=== PATIENT | female | born 1985 | race Caucasian/White ===

== ENCOUNTER → 2019-02-10 10:30 | Outpatient (CLI) | payer OTHER, SELFPAY ==
[2019-02-10 11:14] LABS: Appearance Urine UA CLEAR; Bilirubin Urine UA NEGATIVE (NEGATIVE); Color Urine UA YELLOW; Glucose Urine UA NEGATIVE (Negative); Ketones Urine UA NEGATIVE (NEGATIVE); Leukocyte Esterase Urine UA 2+ (NEGATIVE); Nitrite Urine UA NEGATIVE (Negative); Occult Blood Urine UA TRACE-LYSED (Negative); Protein Urine UA NEGATIVE (Negative); Urobilinogen Urine UA 0.2 E.U./dL (0.2)
[2019-02-10 11:21] LABS: Add Manual Diff / Slide Review NO; Basophils Absolute Auto 0 /uL (0-100); Basophils Percent Auto 0.4 % (0-2); Eosinophils Absolute Auto 0 /uL (0-450); Eosinophils Percent Auto 0.6 % (2-4); Hematocrit 39.5 % (36-46); Hemoglobin 13.7 g/dL (12.0-16.0); Lymphocytes Absolute Auto 1100 /uL (1100-4500); Lymphocytes Percent Auto 14.6 % (25-40); Mean Corpuscular HGB Conc 34.6 % (30-36); Mean Corpuscular Hemoglobin 29.7 PG (26-34); Mean Corpuscular Volume 85.9 fL (80-100); Monocytes Absolute Auto 500 /uL (0-900); Neutrophils Absolute Auto 5800 /uL (1500-7000); Neutrophils Percent Auto 77.4 % (50-75); Platelet Count 254 X10^3/uL (150-400); Red Cell Distribution Width 14.7 % (11.6-14.8); White Blood Cell Count 7.5 X10^3/uL (4.5-11.0)
[2019-02-10 11:31] LABS: Amorphous Sediment Urine 1+; Bacteria Urine Many (>30); RBC Urine 1-5/HPF (0-5/HPF); Squamous Epithelial Cell Urine 5-10 /HPF (0-5/HPF); WBC Urine 5-10/HPF (0-5/HPF)
[2019-02-10 16:15] LABS: Hepatitis B Surface Antigen NEGATIVE s/c (NEGATIVE); Rubella Antibody IgG 42.8 IU/mL (>15)
[2019-02-10 16:22] LABS: HIV 1 & 2 Ab/Ag 4th Gen Combo NEGATIVE (NEGATIVE); Hep C Virus Ab w/Reflex Quant NEGATIVE s/c (NEGATIVE)
[2019-02-12 19:51] LABS: RPR Screen Nonreactive (Nonreactive)
== END ==
PROVIDERS: PCP Family Medicine; Visit Provider Family Medicine
DX: Z34.81 Encounter for supervision of other normal pregnancy, first trimester (principal)
CPT/HCPCS: 36415; 80055; 81003; 81015; 86787; 86803; 86850; 86900; 86901; 87086; 87389

== ENCOUNTER → 2019-05-09 13:06 | Outpatient (CLI) | payer OTHER, SELFPAY ==
--- NOTE | 2019-05-09 13:08 | DI.US.S_ITS ---
PROCEDURE: US OB >= 14 WEEKS FETUS INDICATIONS: ANATOMY SCAN OUTSIDE/PRIOR DATING DATA: Last menstrual period (LMP): 12/22/18. LMP-based estimated date of delivery (SAMY): 09/28/19. First dating scan (date and location): 05/09/19. Estimated date of delivery (SAMY) from first dating scan: 09/24/19. TECHNIQUE: Real-time scanning was performed of the fetus, with image documentation and biometric measurements. Endovaginal scanning: N./A. COMPARISON: None. FINDINGS: General: A single living intrauterine gestation is present. Presentation: Vertex Placenta: Placental position is posterior, without previa. Amniotic fluid index: 15.9 cm, normal range is 5-24 cm. heart rate: 143 beats per minute. Maternal cervical canal: 4.3 cm long. Normal lower limit is 2.5 cm. biometrics: Biparietal diameter: 20 weeks 4 days Head circumference: 19 weeks 6 days Abdominal circumference: 20 weeks Femur length: 20 weeks 4 days Estimated gestational age from initial scan: 19 weeks 5 days Composite gestational age from present scan: 20 weeks 2 days Estimated weight and percentile: 340 g; 75th percentile Measurement variability for biometric dating: +/- 7 days from 14 weeks to 15 weeks 6 days gestation, +/- 10 days from 16 weeks to 21 weeks 6 days gestation, +/- 2 weeks from 22 weeks to 27 weeks 6 days gestation, +/- 3 weeks for 28 weeks gestation or later. weight reference: 4500 g or EFW >90/95% is considered macrosomia or large for gestational age. EFW <10% is small for gestational age. EFW 5% or less is considered intra-uterine growth restriction. Anatomic survey: Neuro: Ventricles are non-dilated at less than 10 mm. Cisterna magna is normal at 3-11 mm. Cerebellum is normal in size and morphology. Nuchal skin fold: Normal at less than 6 mm between 14-21 weeks gestational age. Face: Nose and lips, facial profile are normal. Spine: No evidence for spina bifida. Heart: 4-chambered heart is present, with normal ventricular outflow tracts. Diaphragm: Diaphragm is intact. Stomach: Left-sided stomach is present. Kidneys: No hydronephrosis. Normal is less than 5 mm in 2nd trimester, less than 7 mm in 3rd trimester. Cord: 3-vessel cord has orthotopic insertion. Bladder: Normal in size. Extremities: All 4 extremities identified. IMPRESSION: 1. Single living IUP with composite age of 20 weeks 2 days corresponding to ultrasound SAMY of 09/24/19. 2. Normal anatomic survey. Dictated by: Jamey Talavera [facility] Interpreted: Arianna Arambula MD on 05/09/2019 at 16:57 Approved by: Arianna Arambula M.D. on 05/09/2019 at 17:14
== END ==
PROVIDERS: PCP Family Medicine; Referring Provider Family Medicine; Visit Provider Family Medicine
DX: Z34.92 Encounter for supervision of normal pregnancy, unspecified, second trimester (principal); Z3A.20 20 weeks gestation of pregnancy
CPT/HCPCS: 76811

== ENCOUNTER 2019-07-06 10:14 | Outpatient (CLI) | payer OTHER, SELFPAY ==
--- NOTE | 2019-07-06 10:52 | PM.OBTRLD ---
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 Most likely maternal HR heard in clinic. Return to normal appts. OB Disposition: home
== END 2019-07-06 10:50 | disposition home or self-care (01) ==
LOC: LABOR 10:29 → OB 13:25
PROVIDERS: PCP Family Medicine; Referring Provider Family Medicine; Visit Provider Family Medicine
DX: O36.8330 Maternal care for abnormalities of the fetal heart rate or rhythm, third trimester, not applicable or unspecified (principal); Z3A.28 28 weeks gestation of pregnancy
CPT/HCPCS: 36415; 59025; 82950; 85014; 85018; G0378; G0379

== ENCOUNTER → 2019-07-06 10:55 | Outpatient (CLI) | payer OTHER, SELFPAY ==
[2019-07-06 13:07] LABS: Hemoglobin 11.5 g/dL (12.0-16.0)
[2019-07-06 13:19] LABS: GTT (PREG) 1 Hour PP 50gm Dose 142 mg/dL (76-139)
== END ==
PROVIDERS: PCP Family Medicine; Referring Provider Family Medicine; Visit Provider Family Medicine
DX: Z3A.26 26 weeks gestation of pregnancy (principal)
CPT/HCPCS: 36415; 82950; 85014; 85018

== ENCOUNTER → 2019-07-12 08:33 | Outpatient (CLI) | payer OTHER, SELFPAY ==
[2019-07-12 09:13] LABS: Glucose Fasting Gestational 87 mg/dL (76-95)
[2019-07-12 10:37] LABS: Glucose 1 Hour Gest 146 mg/dL (76-180)
[2019-07-12 11:41] LABS: Glucose 2 Hour Gest 108 mg/dL (76-155)
[2019-07-12 11:54] LABS: Glucose Tol Interp,Gestational INTERPRETATION
[2019-07-12 13:40] LABS: Glucose 3 Hour Gest 62 mg/dL (76-140)
== END ==
PROVIDERS: PCP Family Medicine; Referring Provider Family Medicine; Visit Provider Family Medicine
DX: R73.09 Other abnormal glucose (principal)
CPT/HCPCS: 36415; 82951; 82952

== ENCOUNTER → 2019-08-29 15:54 | Outpatient (CLI) | payer OTHER, SELFPAY ==
[2019-08-30 15:06] LABS: Strep Grp B PCR NEG for Grp B Strep
== END ==
PROVIDERS: PCP Family Medicine; Visit Provider Family Medicine
DX: Z34.90 Encounter for supervision of normal pregnancy, unspecified, unspecified trimester (principal); Z3A.36 36 weeks gestation of pregnancy
CPT/HCPCS: 87653

== ENCOUNTER 2019-09-29 19:49 | Inpatient (IN) | payer OTHER, SELFPAY ==
[2019-09-29] MEDS: LACTATED RINGERS 1,000 ML 100 ML IV ×2 (20:40→21:25)
--- NOTE | 2019-09-29 20:57 | P.HPOB_ITS ---
OB HPI Date/Time Date of admission: 09/29/19 Date Patient Seen: 09/30/19 Time Patient Seen: 01:23 History of Present Condition Chief complaint: eval of labor : 3 Para: 2 Estimated Date of Delivery: 09/28/19 Estimated Gestational Age (weeks): 40w1d Narrative: Miley Avitia is a 34 year old at 40w1d who presented with regular painful contractions. Pt reports contractions starting around 5pm, increasing in frequency and intensity since then. No LOF. Minimal vaginal bleeding. Feeling baby move regularly. History of Present care: good care, initiated at week # (7) and pounds weight gain (39) Dating criteria: based on 1st trimester US only Ultrasounds: normal 1st trimester US and normal mid trimester US Obstetrical complications: none Medical complications: none Preadmission Labs Blood type: A (+) positive -: Antibody screen: negative, GBS status: negative, HBsAG: negative, HIV: negative and RPR/VDLR: negative -: Rubella: immune and Varicella: immune HCT: 33 HCAB: negative 1 hr GTT: 142 3 hr GTT: 1 hr (146), 2 hr (108) and 3 hr (62) Fasting blood glucose: 87 Prior (ies) History: 06/2013 - at 39w4d, IOL, 7lb2oz female, 3rd degree laceration 10/2016 - at 40w5d, 8lb3oz male Evaluation Evaluation Baseline heart rate: 130 Variability: Moderate (11-25) monitor accelerations: Present monitor decelerations: Absent Contraction Frequency (minutes): 3 Uterine Contraction Intensity: Strong/Firm Category of Tracing: I Cervical dilation (cm): 10 Cervical effacement (%): 100 station: +1 Comments: AROM performed after informed consent with production of clear fluid. [facility] Medical History (Updated 09/18/19 @ 11:58 by Deana Green MD) Chicken pox (Resolved ~1989) Surgical History Anesthesia (Resolved) History of adenoidectomy (Resolved ~1993) Family History Father Heart disease Hypertension Mother Type 1 diabetes Hyperlipidemia Brother Hypertension Hyperlipidemia Mental health problem Grandfather Heart disease Stroke Grandmother Cancer Mental health problem Grandfather No problems noted. 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[employer]) current occupational exposures/hazards: No special ese needs: No leisure activities: exercise Smoking Status: Never smoker Meds Home Medications and Allergies Home Medications Medication Instructions Recorded Confirmed Type prenat.vits,david,aob-igfi-ddvki 1 tab PO DAILY 01/31/19 09/29/19 History Allergies Allergy/AdvReac Type Severity Reaction Status Date / Time From ZITHROMAX Allergy Mild Uncoded 09/26/19 15:24 PENICILLIN Allergy Mild Uncoded 09/26/19 15:24 Amoxicillin Allergy Unknown RASH,HEADAC Uncoded 09/26/19 15:24 HE Clavulanic Acid Allergy Unknown RASH,HEADAC Uncoded 09/26/19 15:24 HE Exam Narrative Exam Narrative: Gen: NAD, sitting comfortably in bed, appears well CV; RRR, no murmurs Resp: clear to auscultation bilaterally Abd: soft, nontender, gravid, nondistended Ext: trace edema Objective Labs Result Diagrams: 09/29/19 20:35 Assessment and Plan Assessment and Plan Assessment and Plan narrative: 34yo at 40w1d who presented in active labor. No complications with . AROM performed with production of clear fluid. GBS negative, Rh positive. - Expectant management, anticipate - Epidural for pain control - FHT reassuring - GBS negative, no prophylaxis
[2019-09-29 21:07] LABS: Add Manual Diff / Slide Review NO; Basophils Absolute Auto 0 /uL (0-100); Basophils Percent Auto 0.4 % (0-2); Eosinophils Absolute Auto 0 /uL (0-450); Eosinophils Percent Auto 0.1 % (2-4); Hematocrit 38.6 % (36-46); Hemoglobin 13.3 g/dL (12.0-16.0); Lymphocytes Absolute Auto 1000 /uL (1100-4500); Lymphocytes Percent Auto 8.1 % (25-40); Mean Corpuscular HGB Conc 34.4 % (30-36); Mean Corpuscular Hemoglobin 30.4 PG (26-34); Mean Corpuscular Volume 88.6 fL (80-100); Monocytes Absolute Auto 600 /uL (0-900); Monocytes Percent Auto 4.9 % (3-14); Neutrophils Absolute Auto 10400 /uL (1500-7000); Neutrophils Percent Auto 86.5 % (50-75); Platelet Count 172 X10^3/uL (150-400); Red Blood Cell Count 4.36 X10^6/uL (4.0-5.2); Red Cell Distribution Width 14.2 % (11.6-14.8); White Blood Cell Count 12.1 X10^3/uL (4.5-11.0)
[2019-09-29 21:59] LABS: COVID19 -Nasal RAPID Negative (Negative)
[2019-09-29 23:52] VITALS: BP 126/71
[2019-09-30] MEDS: OXYTOCIN 10 UNIT/ML VIAL 20 UNIT (02:35)
--- NOTE | 2019-09-30 03:04 | PM.OBPRVD ---
Labor & Delivery Delivery date: 09/30/19 Intrapartal events: None Cervical ripening method: none Induction method: none Delivery augmentation: rupture of membranes Delivery monitor: external FHT Route of delivery: Episiotomy description: None L&D Laceration Description: Perineal - 2nd Degree Estimated blood loss (mL): 200 Anesthesia type: Epidural Complications: None Narrative: PROCEDURE: at 40w1d presented in active labor and was admitted to Labor and Delivery. The patient progressed through the 1st stage over 11.5 hours. Pain was controlled with an epidural. AROM was performed when the pt was fully dilated with production of clear fluid. The patient progressed through the 2nd stage over 1 hour and delivered a viable female with APGARs 8/9 at 2:32am via without complications. The cord was clamped and cut after it stopped pulsating, and baby remained on maternal abdomen. The perineum and vagina were inspected with 2nd degree laceration repaired with 3-O Chromic. PREPROCEDURE DIAGNOSIS: Intrauterine at 40w1d GBS negative RH positive POSTPROCEDURE DIAGNOSIS: Intrauterine at 40w2d, delivered Same as preprocedure ROM APPEARANCE: Clear BABY A DELIVERY TIME: 2:32 BABY A WEIGHT: 8lb0.6oz BABY A NUCHAL CORD: None BABY A CORD GASES OBTAINED: No PLACENTA DELIVERY TIME: 2:37 PLACENTA APPEARANCE: Intact [place] Baby 1: Infant gender: Female Presentation: vertex position: Right Occiput Anterior Placenta delivery description: Spontaneous cord vessel description: 3 Vessels score (1 min): 8 score (5 min): 9 Plan for aftercare: Normal care
[2019-09-30] MEDS: LANOLIN OINT 7 GM 1 APPLIC TOP (06:11)
[2019-09-30] MEDS: DERMOPLAST SPRAY 20% 60 ML 1 SPRAY TOP (06:11)
[2019-09-30] MEDS: PRENATAL VIT,CALC/IRON/FOLIC 1 TABLET 1 TAB PO (09:02)
[2019-09-30] MEDS: IBUPROFEN 600 MG TABLET PO ×3 (09:03→22:37)
[2019-09-30] MEDS: DOCUSATE 100 MG CAPSULE PO (09:03)
[2019-09-30] MEDS: FERROUS GLUCONATE 324 MG TABLET PO (09:04)
--- NOTE | 2019-09-30 11:28 | P.PNOB_ITS ---
Subjective - OB Subjective Patient comments: no complaints and pain well controlled [place] baby status: doing well and nursing well feeding status: exclusively breast feeding Date Patient Seen: 09/30/19 Time Patient Seen: 11:29 Interval history: Patient is a 34-year-old 3 para 3 day number 0-1 status post spontaneous vaginal delivery with a first-degree laceration. She reports that pain is well controlled with ibuprofen. Bleeding is tapering. is going well. Exam Vital Signs (past 8 hours): Generally: Patient is sitting up in bed, nursing , no acute distress Fundus: Firm at U Extremities: Negative Homans, no edema Perineum: Well approximated Objective Labs Result Diagrams: 09/29/19 20:35 Labs: Laboratory Results - last 24 hr 09/29/19 09/29/19 09/29/19 20:35 20:35 21:04 WBC 12.1 H RBC 4.36 Hgb 13.3 Hct 38.6 MCV 88.6 MCH 30.4 MCHC 34.4 RDW 14.2 Plt Count 172 Neut % (Auto) 86.5 H Lymph % (Auto) 8.1 L [place] % (Auto) 4.9 Eos % (Auto) 0.1 L Baso % (Auto) 0.4 Neut # (Auto) 70254 H Lymph # (Auto) 1000 L [place] # (Auto) 600 Eos # (Auto) 0 Baso # (Auto) 0 COVID-19 PCR Negative Blood Type A Positive Antibody Screen Negative Assessment & Plan Assessment and Plan (1) Spontaneous vaginal delivery: Problem details: Assessment: 34-year-old 3 para 3 day number 0-1 status post spontaneous vaginal delivery doing very well Plan: Discharge to home Follow-up in 6 weeks Status: Acute Time Spent With Patient Time: Total time spent is greater than 50% in coordination of care (as documented) at patient's floor/unit and/or counseling patient: Time with patient: 15-24 minutes
--- NOTE | 2019-09-30 11:39 | PM.OBDS.1 ---
Discharge Providers Provider Date of admission: 09/29/19 19:49 Discharge Date: 09/30/19 Primary care physician: Deana Green MD Consults: 10/01/19 03:01 Consult to Supervisor [employer] Routine Comment: Discharge provider: Alessandra Galvan MD Summary Hospital Course Date Patient Seen: 09/30/19 Time Patient Seen: 11:40 Procedures: Artificial rupture of membranes Epidural analgesia Spontaneous vaginal delivery Hospital Course: Patient is a 34-year-old 3 para 3 who presented in active labor. She underwent an artificial rupture of membranes. She received an epidural for pain management. She had a spontaneous vaginal delivery with first-degree laceration. Peripartum Data Infant Delivery Method: Natural Vaginal Laceration description: Perineal - 1st Degree Episiotomy description: None Procedures: Artificial rupture of membranes Epidural analgesia Spontaneous vaginal delivery complications: none Discharge Diagnosis (1) Spontaneous vaginal delivery: Status: Acute Problem Details: Assessment: 34-year-old 3 para 3 day number 0-1 status post spontaneous vaginal delivery doing very well Plan: Discharge to home Follow-up in 6 weeks Patient is to call with fever, chills, bleeding vaginally more than a pad in an hour, or pain that is not controlled with ibuprofen Status at Discharge Cognitive/behavioral status at discharge: oriented Functional status at discharge: independent ambulation Overall status at discharge: patient is progressing back to baseline Time Spent with Patient Time attestation: Total time spent providing and/or coordinating discharge services: Time spent: Less than 30 minutes Specific discharge activities: Nothing in vagina for 6 weeks Objective Labs Result Diagrams: 09/29/19 20:35 Labs: Laboratory Results - last 24 hr 09/29/19 09/29/19 09/29/19 20:35 20:35 21:04 WBC 12.1 H RBC 4.36 Hgb 13.3 Hct 38.6 MCV 88.6 MCH 30.4 MCHC 34.4 RDW 14.2 Plt Count 172 Neut % (Auto) 86.5 H Lymph % (Auto) 8.1 L [place] % (Auto) 4.9 Eos % (Auto) 0.1 L Baso % (Auto) 0.4 Neut # (Auto) 20759 H Lymph # (Auto) 1000 L [place] # (Auto) 600 Eos # (Auto) 0 Baso # (Auto) 0 COVID-19 PCR Negative Blood Type A Positive Antibody Screen Negative Exam Vital Signs (past 8 hours): Generally: Patient is sitting up in bed, holding , no acute distress Fundus: Firm at U Perineum: Well-approximated Extremities: Negative Homans, no edema Discharge Plan Discharge Plan Patient Disposition: Home Discharge comment: Call with fever, chills, bleeding vaginally more than a pad in an hour, or pain that is not controlled with ibuprofen Discharge orders & Medications Prescriptions: Continued prenat.vits,david,dbq-ditz-kvdvo Tablet 1 tab PO DAILY RF: 0 Follow up/Referrals: Deana Green MD [Primary Care Provider] - Diet/Activity/Treatments Diet: Regular Activity: Nothing in vagina for 6 weeks Skin/Wound/Dressing Care Report to your healthcare provider any signs of infection, such as:: chills, fever, increased pain and unusual drainage Visit Report/Discharge Packet Instructions: DI for Labor and Delivery, Vaginal Discharge Data Primary Care Provider: Deana Green Attending Provider: Deana Green Admit Date/Time: 09/29/19 19:49
[2019-10-01] MEDS: IBUPROFEN 600 MG TABLET PO (05:43)
[2019-10-01] MEDS: PRENATAL VIT,CALC/IRON/FOLIC 1 TABLET 1 TAB PO (08:46)
[2019-10-01] MEDS: DOCUSATE 100 MG CAPSULE PO (08:46)
[2019-10-01] MEDS: FERROUS GLUCONATE 324 MG TABLET PO (08:46)
[2019-10-01 10:27] VITALS: BP 114/74; PULSE 65; RESP 18; TEMP 36.8
== END 2019-10-01 11:22 | disposition home or self-care (01) | DRG 807 ==
PROVIDERS: Admitting Provider Family Medicine; PCP Family Medicine; Referring Provider Family Medicine; Visit Provider Family Medicine
DX: O70.1 Second degree perineal laceration during delivery (principal); Z37.0 Single live birth; Z3A.40 40 weeks gestation of pregnancy; Z11.59 Encounter for screening for other viral diseases
CPT/HCPCS: 01967; 59050; 59400; 85025; 86850; 86900; 86901; 87635; G0378; G0379; J2590

== ENCOUNTER → 2024-08-05 08:16 | Outpatient (CLI) | payer OTHER, SELFPAY ==
[2024-08-05 09:08] LABS: Hematocrit 36.4 % (36-46); Hemoglobin 12.1 g/dL (12.0-16.0); Mean Corpuscular HGB Conc 33.1 % (30-36); Mean Corpuscular Hemoglobin 27.6 PG (26-34); Mean Corpuscular Volume 83.4 fL (80-100); Platelet Count 266 X10^3/uL (150-400); Red Blood Cell Count 4.36 X10^6/uL (4.0-5.2); Red Cell Distribution Width 14.9 % (11.6-14.8); White Blood Cell Count 6.3 X10^3/uL (4.5-11.0)
[2024-08-05 09:46] LABS: Alanine Aminotransferase 19 IU/L (<35); Albumin 4.2 g/dL (3.5-5.0); Albumin Globulin Ratio 1.8 (1.0-2.8); Alkaline Phosphatase 47 U/L (38-126); Aspartate Aminotransferase 28 IU/L (14-36); BUN Creatinine Ratio 15.6 (6-22); Bilirubin Total 0.3 mg/dL (0.2-1.3); Blood Urea Nitrogen 10 mg/dL (7-17); Calcium 8.9 mg/dL (8.4-10.2); Carbon Dioxide 26 mmol/L (22-32); Chloride 105 mmol/L (98-107); Estimated Glomerular Filt Rate > 60 mL/min (>60); Globulin 2.4 g/dL (1.7-4.1); Glucose 87 mg/dL (70-99); HEMOLYSIS < 15 (0-50); Potassium 4.2 mmol/L (3.4-5.1); Sodium 139 mmol/L (137-145); Total Protein 6.6 g/dL (6.3-8.2)
== END ==
PROVIDERS: PCP Family Medicine; Referring Provider Podiatrist; Visit Provider Podiatrist
DX: Z13.89 Encounter for screening for other disorder (principal)
CPT/HCPCS: 36415; 80053; 85027

== ENCOUNTER → 2024-12-09 08:02 | Outpatient (CLI) | payer OTHER, SELFPAY ==
[2024-12-09 09:08] LABS: Hematocrit 36.0 % (36-46); Hemoglobin 12.1 g/dL (12.0-16.0); Mean Corpuscular HGB Conc 33.6 % (30-36); Mean Corpuscular Hemoglobin 26.9 PG (26-34); Mean Corpuscular Volume 80.2 fL (80-100); Platelet Count 351 X10^3/uL (150-400)
[2024-12-09 09:26] LABS: Alanine Aminotransferase 13 IU/L (<35); Albumin 4.2 g/dL (3.5-5.0); Albumin Globulin Ratio 1.6 (1.0-2.8); Alkaline Phosphatase 48 U/L (38-126); Blood Urea Nitrogen 12 mg/dL (7-17); Calcium 8.9 mg/dL (8.4-10.2); Carbon Dioxide 27 mmol/L (22-32); Chloride 106 mmol/L (98-107); Estimated Glomerular Filt Rate > 60 mL/min (>60); Globulin 2.6 g/dL (1.7-4.1); Glucose 86 mg/dL (70-99); HEMOLYSIS < 15 (0-50); Potassium 4.6 mmol/L (3.4-5.1); Sodium 138 mmol/L (137-145); Total Protein 6.8 g/dL (6.3-8.2)
== END ==
PROVIDERS: PCP Family Medicine; Referring Provider Podiatrist; Visit Provider Podiatrist
DX: B35.1 Tinea unguium (principal)
CPT/HCPCS: 36415; 80053; 85027